=== PATIENT | male | born 1940 | race Caucasian/White ===

== ENCOUNTER → 2017-05-15 | Outpatient (CLI) | payer MEDICARE ==
[~2017-05-15] MED LIST: REGADENOSON 0.4 MG/5 ML DISP.SYRIN. IV ONE
--- NOTE | 2017-05-15 14:32 | PCVCIMAG ---
APPROVED REPORT Exam: Nuclear Stress Test Indication: Abnormal EKG, Palpitations , Cardiomyopathy Patient Location: Out-Patient Stress Nurse: Sara Gerardo RN, SHANELL Crane Tech:KATINA Gupta Ht: 5 ft 5 in Wt: 182 lbs BSA: 1.90 m2 HR: 52 bpm BP: 115/158 mmHg BMI: 30.2 Rhythm: Sinus Bradycardia, ST & T ABNORMALITY Medical History Medical History: AGE, HTN, CAD Medications: Xanax, Norvasc, ASA, Atorvastatin, Coreg, Lisinopril Allergies: No known drug allergies Previous Cardiac Procedures: PCI Pretest Chest Pain Characteristics: No chest pain Exercise History: Physically active Meds Held (24 hrs): Coreg NM EXAM: Myocardial Perfusion REST/STRESS Imaging Protocol: Rest Tc-99m/Stress Tc-99m 1 day Resting Data Rest SPECT myocardial perfusion imaging was performed in supine position 45 minutes following the intravenous injection of 11.0 mCi of Tc-99m Sestamibi. Time of rest injection: 824 Date: 05/15/2017 Administration Route: IV Administration Site: Right Wrist Pharmacologic Stress Pharmacologic stress test was performed by injecting Regadenoson 0.4 mg IV push followed by the intravenous injection of 33.2 mCi of Tc-99m Sestamibi. Time of stress injection: Date: 05/15/2017 Administration Route: IV Administration Site: Right Wrist Gated Stress SPECT was performed 45 minutes after stress injection. The images were gated to evaluate regional wall motion and calculate left ventricular ejection fraction. Study Data Post stress, the left ventricular ejection was 50%.. SSS: 2 SRS: 3 SDS: 0 TID = 1.11. Perfusion There is a medium area of moderately reduced uptake in the basal and mid segment of the inferior wall which is seen on the stress images as well as the resting images. This area thickens and moves normally and is most consistent with attenuation artifact. Wall Motion Normal left ventricular wall motion. Nuclear Conclusion 1. LOW RISK STUDY Interpreted by: Janee Zuluaga MD Electronically Approved: 05/15/2017 14:31:19 Stress Test Details Stress Test: Pharmacologic stress was paired with low level exercise. Reason for pharmacologic stress test: physical limitation. HR Resting HR: 52 bpmMax Heart Rate (APMHR): 144 bpm Max HR Achieved: 108 bpmTarget HR (85% APMHR): 122 bpm % of APMHR: 75 Recovery HR: 75 bpm BP Resting BP: 115/58 mmHg Max BP: 110/64 mmHg ECG Resting ECG: Sinus Juan R, nonspecific ST-T abnormalities, Stress ECG: Sinus Rhythm, Ventricular Ectopy Arrhythmia: VPC's Recovery ECG: Sinus Rhythm Clinical Reason for Termination: Completed protocol Stress Symptoms: Dyspnea Exercise duration: 4 min 00 sec Exercise capacity: 1.6 METs Symptoms resolved during recovery. Stress ECG Conclusion 1. ADEQUATE RESPONSE TO IV LEXISCAN 2. INADEQUATE HEART RATE FOR ECG DIAGNOSIS <Conclusion> 1. ADEQUATE RESPONSE TO IV LEXISCAN 2. INADEQUATE HEART RATE FOR ECG DIAGNOSIS
== END | disposition home or self-care (01) ==
LOC: PCVCIMAG 08:13
PROVIDERS: ATTEND Internal Medicine
DX: I48.91 Unspecified atrial fibrillation (principal); I42.9 Cardiomyopathy, unspecified; I50.9 Heart failure, unspecified; R94.31 Abnormal electrocardiogram [ECG] [EKG]; R00.2 Palpitations; R00.1 Bradycardia, unspecified
CPT/HCPCS: 78452; 93017; A9500; J2785

== ENCOUNTER → 2017-09-18 | Outpatient (CLI) | payer MEDICARE | END | disposition home or self-care (01) | LOC: PCVCCLINIC 10:16 | DX: I48.91 Unspecified atrial fibrillation (principal); E78.5 Hyperlipidemia, unspecified; I10 Essential (primary) hypertension | CPT/HCPCS: 36415 ==

== ENCOUNTER → 2018-03-19 | Outpatient (CLI) | payer MEDICARE | END | disposition home or self-care (01) | LOC: PCVCCLINIC 15:44 | PROVIDERS: ATTEND Internal Medicine | DX: I42.0 Dilated cardiomyopathy (principal); I50.20 Unspecified systolic (congestive) heart failure; E78.5 Hyperlipidemia, unspecified; I49.3 Ventricular premature depolarization; Z79.82 Long term (current) use of aspirin; Z79.899 Other long term (current) drug therapy | CPT/HCPCS: 93005; G0463 ==

== ENCOUNTER → 2018-10-30 | Outpatient (CLI) | payer MEDICARE ==
--- NOTE | 2018-10-30 12:04 | PCVCIMAG ---
APPROVED REPORT Study performed: 10/30/2018 08:48:49 EXAM: Comprehensive 2D, Doppler, and color-flow Echocardiogram Patient Location: Echo lab Status: routine BSA: 1.78 HR: 68 bpmBP: 110/78 mmHg Rhythm: NSR Other Information Study Quality: Good Risk Factors: Cardiac Risk Factors: Hyperlipidemia Indications Atrial Fibrillation Bradycardia Cardiomyopathy 2D Dimensions IVSd: 9.30 (7-11mm)LVOT Diam: 22.46 (18-24mm) LVDd: 52.82 mm PWd: 9.57 (7-11mm)Ascending Ao: 33.76 (22-36mm) LVDs: 42.72 (25-40mm) Left Atrium: 44.99 (27-40mm) Aortic Root: 32.35 mm LV Single Plane 4CH: 40.52 % LV Single Plane 2CH: 41.98 % Biplane EF: 39.7 % Volumes Left Atrial Volume (Systole) Single Plane 4CH: 59.88 mLSingle Plane 2CH: 59.48 mL LA ESV Index: 35.00 mL/m2 Aortic Valve AoV Peak [place].: 1.30 m/s AO Peak Gr.: 6.80 mmHg AI Vmax: 4.27 m/s AI [place]: 1.82 m/s2 AI PHT: 679.34 ms Mitral Valve E/A Ratio: 0.9 MV Decel. Time: 252.20 ms MV E Max Thiago.: 0.68 m/s MV A Thiago.: 0.79 m/s TDI E/Lateral E': 11.33E/Medial E': 11.33 Medial E' Thiago.: 0.06 m/s Lateral E' Thiago.: 0.06 m/s Pulmonary Valve PV Peak Gr.: 1.97 mmHg Pulmonary Vein P Vein S: 0.37 m/sP Vein A: 0.31 m/s P Vein D: 0.46 m/sP Vein A Dur.: 131.5 msec P Vein S/D Ratio: 0.80 Tricuspid Valve TR Peak Thiago.: 2.48 m/s TR Peak Gr.: 24.62 mmHg Left Ventricle The left ventricle is normal size. There is normal LV segmental wall motion. There is normal left ventricular wall thickness. Left ventricular systolic function is mildly decreased. LVEF is 40-45%. Grade I - abnormal relaxation pattern. Right Ventricle The right ventricle is normal size. The right ventricular systolic function is normal. Atria The left atrium size is normal. The right atrium size is normal. Aortic Valve The aortic valve is normal in structure. Mild aortic regurgitation. There is no aortic valvular stenosis. Mitral Valve The mitral valve is normal in structure. Mild mitral regurgitation. No evidence of mitral valve stenosis. Tricuspid Valve The tricuspid valve is normal in structure. Mild tricuspid regurgitation. Pulmonary artery pressure is 32mmHg. Pulmonic Valve The pulmonary valve is normal in structure. Trace pulmonic regurgitation. Great Vessels The aortic root is normal in size. IVC is normal in size and collapses >50% with inspiration. Pericardium There is no pericardial effusion. <Conclusion> The left ventricle is normal size. LVEF is 40-45%. The aortic valve is normal in structure. Mild aortic regurgitation. The mitral valve is normal in structure. Mild mitral regurgitation. The tricuspid valve is normal in structure. Mild tricuspid regurgitation. Pulmonary artery pressure is 32mmHg. The pulmonary valve is normal in structure. Trace pulmonic regurgitation. There is no pericardial effusion.
== END | disposition home or self-care (01) ==
LOC: PCVCIMAG 08:20
PROVIDERS: ATTEND Internal Medicine
DX: I08.3 Combined rheumatic disorders of mitral, aortic and tricuspid valves (principal); I48.91 Unspecified atrial fibrillation; I42.9 Cardiomyopathy, unspecified; R00.1 Bradycardia, unspecified
CPT/HCPCS: 93306